=== PATIENT | male | born 1995 | race Caucasian/White ===

== ENCOUNTER 2017-11-09 06:42 | Emergency (ER) | payer OTHER ==
[~2017-11-09] VITALS: Ht 185.4 cm; Wt 70.5 kg
[2017-11-09 06:52] VITALS: BP 106/35
[2017-11-09 08:02] LABS: INFLUENZA A NEGATIVE; INFLUENZA B NEGATIVE
[2017-11-09] MEDS ORDERED: TAMIFLU 75MG75 MG PO (08:04)
[2017-11-09 08:28] VITALS: PULSE 108; TEMP 99.6
== END 2017-11-09 08:10 | disposition home or self-care (01) ==
LOC: COL.ER 06:42
PROVIDERS: Physician Assistant
DX: J11.1 Influenza due to unidentified influenza virus with other respiratory manifestations (principal)

== ENCOUNTER 2018-05-04 02:19 | Emergency (ER) | payer OTHER ==
[~2018-05-04] VITALS: Ht 185.4 cm; Wt 72.7 kg
[~2018-05-04 02:19] MED LIST: TAMIFLU 75MG75 MG PO
[2018-05-04 02:22] VITALS: TEMP 98.2
[2018-05-04 03:10] LABS: BASO # 0.1 (0.0-0.2); BASO % 0.7 % (0.0-2.0); EOS # 0.5 (0.0-0.7); EOS % 6.9 % (0-4.0); GRAN # 3.1 (1.4-6.5); HEMATOCRIT 44.1 % (42.0-52.0); HEMOGLOBIN 15.2 g/dl (13.5-18.0); LYMPH # 2.7 (1.2-3.4); LYMPH % 39.8 % (20.0-51.0); MEAN CELL VOLUME 87 fl (80.0-100.0); MEAN CORPUSCULAR HEMOGLOBIN 30 pg (27.0-31.0); MEAN CORPUSCULAR HGB CONC 35 g/dl (33.0-37.0); MEAN PLATELET VOLUME 10.9 fl (7.4-10.4); MONO # 0.4 (0.1-0.6); MONO % 6.5 % (1.7-9.3); PLATELET COUNT 206 K/mm3 (130-400); RED BLOOD COUNT 5.08 M/mm3 (4.20-5.60); REDCELL DISTRIBUTION WIDTH-CV 11.9 % (11.5-14.5)
[2018-05-04 03:22] LABS: CALCIUM 9.2 mg/dL (8.4-10.2); CREATININE, serum 1.01 mg/dL (0.66-1.25); POTASSIUM 3.8 mmol/L (3.4-5.0)
[2018-05-04 05:04] VITALS: BP 132/79; PULSE 80
== END 2018-05-04 05:35 | disposition short-term general hospital (02) ==
LOC: COL.ER 02:19
PROVIDERS: Emergency Medicine
DX: S02.609B Fracture of mandible, unspecified, initial encounter for open fracture (principal); S02.609A Fracture of mandible, unspecified, initial encounter for closed fracture; Y04.8XXA Assault by other bodily force, initial encounter; Y92.410 Unspecified street and highway as the place of occurrence of the external cause
CPT/HCPCS: J0295; J1170; J3010; J7030